=== PATIENT | female | born 1935 | race Caucasian/White ===

== ENCOUNTER 2017-02-28 18:23 | Emergency (ER) | payer MEDICARE, MEDICAID ==
[~2017-02-28] VITALS: Ht 152.4 cm; Wt 60.0 kg
[~2017-02-28 18:23] MED LIST: ASPI-1158 PO; ATOR20TA65 PO; CHOL20004 PO; MECL-109 PO; METO100T5 PO; OMEP20TA2 PO
[2017-02-28 19:43] LABS: BASOPHILS % 0.8 % (0.0-2.0); EOSINOPHILS % 0.9 % (0.0-5.0); HEMATOCRIT. 33.4 % (36.0-48.0); MEAN CORPUSCULAR HEMOGLOBIN 28.2 pg (28.0-32.0); MEAN CORPUSCULAR VOLUME 85.4 fL (81.0-99.0); MEAN PLATELET VOLUME 7.5 fl (7.4-10.4); NEUTROPHILS % 67.3 % (40.0-76.0); PLATELET 364 x1000/uL (130-400); RED BLOOD CELL COUNT 3.91 mill/uL (4.2-5.4); RED CELL DISTRIBUTION WIDTH 14.7 % (11.6-14.6)
[2017-02-28 19:49] LABS: PROTHROMBIN TIME 10.1 sec (9.4-11.6)
[2017-02-28 19:51] LABS: CHLORIDE 108 mEq/L (98-107)
[2017-02-28 20:02] LABS: CARBON DIOXIDE 26 mEq/L (21-32); TROPONIN I < 0.02 ng/mL (0.00-0.04)
[2017-02-28] MEDS ORDERED: ACETAMINOPHEN 650MG/20.3ML UDC PO ONE (22:30)
[2017-02-28 23:43] LABS: CLARITY URINE CLEAR (CLEAR); COLOR URINE YELLOW (YELLOW); GLUCOSE URINE NEGATIVE (NEGATIVE); KETONES URINE NEGATIVE (NEGATIVE); LEUKOCYTE ESTERASE URINE NEGATIVE (NEGATIVE); NITRITE URINE NEGATIVE (NEGATIVE); OCCULT BLOOD URINE 1+ (NEGATIVE); PH URINE 6.5 (4.5-8.0); PROTEIN URINE NEGATIVE (NEGATIVE); SPECIFIC GRAVITY URINE 1.008 (1.005-1.030); UROBILINOGEN URINE 0.2 E.U./dL (0.2-1.0)
[2017-03-01 01:35] VITALS: BP 126/70
== END 2017-03-01 01:40 | disposition home or self-care (01) ==
LOC: ER 18:24 → CANBEDREQ 03-01 05:13
DX: R42 Dizziness and giddiness (principal); R53.1 Weakness; R51 Headache; I10 Essential (primary) hypertension; D72.829 Elevated white blood cell count, unspecified; D64.9 Anemia, unspecified; Z79.82 Long term (current) use of aspirin; Z90.710 Acquired absence of both cervix and uterus; Z90.49 Acquired absence of other specified parts of digestive tract
CPT/HCPCS: 36415; 70450; 71010; 80053; 81001; 83880; 84484; 85025; 85610; 93005; 99285

== ENCOUNTER 2017-04-28 23:37 | Inpatient (IN) | payer MEDICARE, MEDICAID ==
[~2017-04-28] VITALS: Ht 152.4 cm; Wt 53.1 kg
[2017-04-29] MEDS ORDERED: NITROGLYCERIN 0.1MG/HR PATCH TOP NR (02:20)
[2017-04-29] MEDS ORDERED: SODIUM CHLORIDE 0.9% 1,000 ML IV ONE (02:20)
[2017-04-29] MEDS ORDERED: ASPIRIN 81MG TABLET PO NR (02:20)
[2017-04-29 10:10] VITALS: BP 161/80
[2017-04-29 10:47] VITALS: BP 161/80
[2017-04-29] MEDS ORDERED: ONDANSETRON HCL 4MG/2ML VIAL IV PRN (11:15)
[2017-04-29] MEDS ORDERED: GUAIFENESIN 200MG/10ML SUGAR FREE UDC PO PRN (11:15)
[2017-04-29] MEDS ORDERED: ACETAMINOPHEN 325MG TABLET PO PRN (11:15)
[2017-04-29] MEDS ORDERED: CLONIDINE 0.1MG TABLET PO PRN (11:15)
[2017-04-29] MEDS ORDERED: TRAMADOL 50MG TABLET PO PRN (11:15)
[2017-04-29] MEDS ORDERED: IPRATROPIUM/ALBUTEROL 0.5-3(2.5)MG/3ML NEB INH PRN (11:15)
[2017-04-29] MEDS ORDERED: NA PHOS,M-B/NA PHOS,DI-BA ENEMA 118ML PR PRN (11:15)
[2017-04-29] MEDS ORDERED: NITROGLYCERIN 0.4MG TABLET SL SL PRN (11:15)
[2017-04-29] MEDS ORDERED: MAGNESIUM/ALUMINUM HYDROXIDE/SIMETHICONE 30ML UDC PO PRN (11:15)
[2017-04-29] MEDS ORDERED: DIPHENHYDRAMINE 50MG/ML VIAL IV PRN (11:15)
[2017-04-29] MEDS ORDERED: DOCUSATE SODIUM 100MG CAPSULE PO PRN (11:15)
[2017-04-29] MEDS ORDERED: LORAZEPAM 2MG/ML CPJ IV PRN (11:15)
[2017-04-29] MEDS: PANTOPRAZOLE SODIUM 40 MG/VIAL IV SCH (12:09)
[2017-04-29 16:00] VITALS: BP 131/76
[2017-04-29 16:23] LABS: CARBON DIOXIDE 25 mEq/L (21-32); CHLORIDE 114 mEq/L (98-107); CREATINE KINASE 38 IU/L (26-192); CREATINE KINASE MB FRACTION 1.1 ng/mL (0.5-3.6); TROPONIN I < 0.02 ng/mL (0.00-0.04)
[2017-04-29 18:09] LABS: HEMATOCRIT 32.1 % (36.0-48.0); HEMOGLOBIN 10.9 g/dL (12.0-16.0); MEAN CORPUSCULAR HEMOGLOBIN 29.5 pg (28.0-32.0); MEAN CORPUSCULAR VOLUME 87.1 fL (81.0-99.0); PLATELET 278 x1000/uL (130-400); RED BLOOD CELL COUNT 3.69 mill/uL (4.2-5.4); RED CELL DISTRIBUTION WIDTH 15.7 % (11.6-14.6)
[2017-04-29 19:17] LABS: BASOPHILS % 1.5 % (0.0-2.0); EOSINOPHILS % 0.7 % (0.0-5.0); HEMATOCRIT. 35.1 % (36.0-48.0); HEMOGLOBIN. 11.6 g/dL (12.0-16.0); LYMPHOCYTES % 25.6 % (20.0-50.0); MEAN CORPUSCULAR HEMOGLOBIN 29.6 pg (28.0-32.0); MEAN PLATELET VOLUME 8.4 fl (7.4-10.4); MONOCYTES % 4.4 % (2.0-8.0); NEUTROPHILS % 67.8 % (40.0-76.0); PLATELET 301 x1000/uL (130-400); RED BLOOD CELL COUNT 3.94 mill/uL (4.2-5.4); RED CELL DISTRIBUTION WIDTH 16.3 % (11.6-14.6)
[2017-04-29 19:20] LABS: T4 FREE 0.92 ng/dL (0.76-1.46)
[2017-04-29 19:44] LABS: VITAMIN B12 SERUM 178 pg/mL (211-911)
[2017-04-29 20:00] VITALS: BP 130/78
[2017-04-29 20:13] LABS: FOLIC ACID (FOLATE) SERUM > 20.00 ng/mL (>5.38)
[2017-04-29] MEDS: LISINOPRIL 20MG TABLET PO SCH (20:56)
[2017-04-29] MEDS: SUCRALFATE 1 G/10 ML UDC PO SCH (20:56)
[2017-04-29] MEDS: ATORVASTATIN CALCIUM 20MG TABLET PO SCH (20:56)
[2017-04-29] MEDS: ENOXAPARIN 40MG/0.4ML SYR SUBCUT SCH (20:57)
[2017-04-29] MEDS: METOPROLOL TARTRATE 25MG TABLET PO SCH (20:58)
[2017-04-29] MEDS: ASCORBIC ACID 500 MG TABLET PO SCH (20:59)
[2017-04-29] MEDS ORDERED: ZOLPIDEM TARTRATE 5MG TABLET PO PRN (21:00)
[2017-04-30] VITALS (7 sets, daily range): BP systolic 107–140; BP diastolic 56–71
[2017-04-30 00:05] LABS: CREATINE KINASE 45 IU/L (26-192)
[2017-04-30 06:58] LABS: TROPONIN I < 0.02 ng/mL (0.00-0.04)
[2017-04-30] MEDS: METOPROLOL TARTRATE 25MG TABLET PO SCH ×2 (09:00→20:36)
[2017-04-30] MEDS: ASPIRIN 325MG EC TABLET PO SCH (09:22)
[2017-04-30] MEDS: ASCORBIC ACID 500 MG TABLET PO SCH ×2 (09:23→20:36)
[2017-04-30] MEDS: LISINOPRIL 20MG TABLET PO SCH ×2 (09:23→20:36)
[2017-04-30] MEDS: SUCRALFATE 1 G/10 ML UDC PO SCH ×4 (09:24→20:35)
[2017-04-30] MEDS: PANTOPRAZOLE SODIUM 40 MG/VIAL IV SCH (09:25)
[2017-04-30] MEDS: ENOXAPARIN 40MG/0.4ML SYR SUBCUT SCH (20:35)
[2017-04-30] MEDS: ATORVASTATIN CALCIUM 20MG TABLET PO SCH (20:36)
[2017-05-01 04:00] VITALS: BP 122/62
[2017-05-01] MEDS: SUCRALFATE 1 G/10 ML UDC PO SCH ×4 (07:10→22:03)
[2017-05-01 07:25] LABS: BASOPHILS % 0.7 % (0.0-2.0); EOSINOPHILS % 1.2 % (0.0-5.0); HEMATOCRIT. 30.8 % (36.0-48.0); HEMOGLOBIN. 10.1 g/dL (12.0-16.0); LYMPHOCYTES % 29.7 % (20.0-50.0); MEAN CORPUSCULAR HEMOGLOBIN 28.7 pg (28.0-32.0); MEAN CORPUSCULAR VOLUME 87.3 fL (81.0-99.0); MEAN PLATELET VOLUME 8.2 fl (7.4-10.4); MONOCYTES % 6.4 % (2.0-8.0); PLATELET 274 x1000/uL (130-400); RED BLOOD CELL COUNT 3.53 mill/uL (4.2-5.4); RED CELL DISTRIBUTION WIDTH 15.8 % (11.6-14.6)
[2017-05-01 07:35] LABS: CARBON DIOXIDE 23 mEq/L (21-32); CHLORIDE 112 mEq/L (98-107); TROPONIN I < 0.02 ng/mL (0.00-0.04)
[2017-05-01 08:00] VITALS: BP 110/52
[2017-05-01] MEDS: ASCORBIC ACID 500 MG TABLET PO SCH ×2 (08:18→22:05)
[2017-05-01] MEDS: FAMOTIDINE 20MG TABLET PO SCH (08:18)
[2017-05-01] MEDS: LISINOPRIL 20MG TABLET PO SCH ×2 (08:18→22:05)
[2017-05-01] MEDS: METOPROLOL TARTRATE 25MG TABLET PO SCH ×2 (08:18→22:05)
[2017-05-01] MEDS: ASPIRIN 325MG EC TABLET PO SCH (08:18)
[2017-05-01 12:00] VITALS: BP 116/54
[2017-05-01 16:00] VITALS: BP 103/56
[2017-05-01 20:00] VITALS: BP_SYST 132; BP_SYST 145; BP_SYST 147; BP_DIAS 61; BP_DIAS 68; BP_DIAS 69
[2017-05-01] MEDS ORDERED: ENOXAPARIN 30MG/0.3ML SYR SUBCUT SCH (21:00)
[2017-05-01] MEDS: ATORVASTATIN CALCIUM 20MG TABLET PO SCH (22:04)
[2017-05-02] VITALS: BP 102/58
[2017-05-02 04:00] VITALS: BP 105/54
[2017-05-02 08:00] VITALS: BP_SYST 155; BP_SYST 159; BP_SYST 160; BP_DIAS 68; BP_DIAS 70; BP_DIAS 78
[2017-05-02] MEDS: ASCORBIC ACID 500 MG TABLET PO SCH (08:34)
[2017-05-02] MEDS: FAMOTIDINE 20MG TABLET PO SCH (08:34)
[2017-05-02] MEDS: SUCRALFATE 1 G/10 ML UDC PO SCH (08:34)
[2017-05-02] MEDS: ASPIRIN 325MG EC TABLET PO SCH (08:35)
[2017-05-02] MEDS: METOPROLOL TARTRATE 25MG TABLET PO SCH (08:44)
[2017-05-02] MEDS: LISINOPRIL 20MG TABLET PO SCH (08:44)
[2017-05-02 12:00] VITALS: BP 135/70
[2017-05-02 13:35] VITALS: BP 135/70
== END 2017-05-02 15:53 | disposition home or self-care (01) | DRG 392 ==
LOC: ER 04-29 01:00 → 7WST 04-29 04:00
PROVIDERS: ADMIT Internal Medicine; ATTEND Internal Medicine
DX: K21.9 Gastro-esophageal reflux disease without esophagitis (principal); E44.0 Moderate protein-calorie malnutrition; D63.8 Anemia in other chronic diseases classified elsewhere; E78.00 Pure hypercholesterolemia, unspecified; H81.10 Benign paroxysmal vertigo, unspecified ear; R29.6 Repeated falls; I11.9 Hypertensive heart disease without heart failure; Z79.899 Other long term (current) drug therapy; Z79.82 Long term (current) use of aspirin; Z90.710 Acquired absence of both cervix and uterus; Z90.49 Acquired absence of other specified parts of digestive tract; Z68.22 Body mass index [BMI] 22.0-22.9, adult
CPT/HCPCS: 36415; 71010; 80048; 80053; 80061; 82550; 82553; 82607; 82746; 83036; 83540; 83550; 83735; 83880; 84439; 84443; 84484; 85025; 85027; 85379; 93005; 93306; 93970; 97161; 97165; 99285; C9113; J1650; J7030

== ENCOUNTER → 2017-12-14 | Outpatient (CLI) | payer MEDICARE, MEDICAID ==
[~2017-12-14] MED LIST changes: +METO100T16 PO; -METO100T5 PO
[2017-12-14 17:49] LABS: BASOPHILS % 0.4 % (0.0-2.0); EOSINOPHILS % 0.3 % (0.0-5.0); HEMATOCRIT. 37.1 % (36.0-48.0); HEMOGLOBIN. 12.3 g/dL (12.0-16.0); LYMPHOCYTES % 37.1 % (20.0-50.0); MEAN CORPUSCULAR HEMOGLOBIN 30.1 pg (28.0-32.0); MEAN CORPUSCULAR VOLUME 90.4 fL (81.0-99.0); MEAN PLATELET VOLUME 8.6 fl (7.4-10.4); MONOCYTES % 5.3 % (2.0-8.0); NEUTROPHILS % 56.9 % (40.0-76.0); PLATELET 275 x1000/uL (130-400); RED CELL DISTRIBUTION WIDTH 19.1 % (11.6-14.6)
[2017-12-14 17:54] LABS: CHLORIDE 109 mEq/L (98-107)
[2017-12-14 17:57] LABS: INR 1.2
[2017-12-14 17:59] LABS: AMYLASE 37 IU/L (25-115); GAMMA GLUTAMYL TRANSPEPTIDASE 23 IU/L (7-32)
[2017-12-14 18:05] LABS: T4 FREE 1.24 ng/dL (0.76-1.46)
== END | disposition home or self-care (01) ==
LOC: LAB 16:43
PROVIDERS: ATTEND Internal Medicine Gastroenterology
DX: D64.9 Anemia, unspecified (principal); R11.2 Nausea with vomiting, unspecified; R63.4 Abnormal weight loss; R47.02 Dysphasia; E78.5 Hyperlipidemia, unspecified; E78.00 Pure hypercholesterolemia, unspecified; I11.9 Hypertensive heart disease without heart failure; Z79.82 Long term (current) use of aspirin; Z79.899 Other long term (current) drug therapy; Z90.49 Acquired absence of other specified parts of digestive tract; Z90.710 Acquired absence of both cervix and uterus; Z79.01 Long term (current) use of anticoagulants
CPT/HCPCS: 36415; 80053; 82150; 82784; 82977; 83036; 83516; 83615; 83690; 84439; 84443; 85025; 85610; 86255

== ENCOUNTER → 2017-12-23 | Outpatient (CLI) | payer MEDICARE, MEDICAID | END | disposition home or self-care (01) | LOC: MRI 10:46 | PROVIDERS: ATTEND Internal Medicine Gastroenterology | DX: N28.1 Cyst of kidney, acquired (principal); Z90.49 Acquired absence of other specified parts of digestive tract | CPT/HCPCS: 74181 ==

== ENCOUNTER → 2018-01-24 | Outpatient (CLI) | payer MEDICARE, MEDICAID ==
[~2018-01-24] MED LIST changes: +BARIUM SULFATE 450ML ORAL SUSP ONE
== END | disposition home or self-care (01) ==
LOC: CT 09:21
PROVIDERS: ATTEND Internal Medicine Gastroenterology
DX: K21.9 Gastro-esophageal reflux disease without esophagitis (principal); K57.90 Diverticulosis of intestine, part unspecified, without perforation or abscess without bleeding; R63.4 Abnormal weight loss; K29.70 Gastritis, unspecified, without bleeding; Z90.49 Acquired absence of other specified parts of digestive tract
CPT/HCPCS: 71046; 74176

== ENCOUNTER → 2018-02-22 | Outpatient (CLI) | payer MEDICARE, MEDICAID ==
[~2018-02-22] MED LIST changes: -BARIUM SULFATE 450ML ORAL SUSP ONE; +MEGE625O3 PO; +MIRT15TA PO; +RANI300C8 PO
[2018-02-22 13:08] LABS: INR 1.2
[2018-02-22 13:17] LABS: BASOPHILS % 0.1 % (0.0-2.0); HEMATOCRIT. 27.8 % (36.0-48.0); HEMOGLOBIN. 9.4 g/dL (12.0-16.0); LYMPHOCYTES % 10.1 % (20.0-50.0); MEAN CORPUSCULAR HEMOGLOBIN 35.5 pg (28.0-32.0); MEAN CORPUSCULAR VOLUME 105.4 fL (81.0-99.0); MEAN PLATELET VOLUME 8.6 fl (7.4-10.4); MONOCYTES % 3.6 % (2.0-8.0); NEUTROPHILS % 86.2 % (40.0-76.0); PLATELET 232 x1000/uL (130-400); RED BLOOD CELL COUNT 2.64 mill/uL (4.2-5.4); RED CELL DISTRIBUTION WIDTH 20.3 % (11.6-14.6)
== END | disposition home or self-care (01) ==
LOC: LAB 11:24
PROVIDERS: ATTEND Internal Medicine Gastroenterology
DX: R63.4 Abnormal weight loss (principal); R19.7 Diarrhea, unspecified; Z86.2 Personal history of diseases of the blood and blood-forming organs and certain disorders involving the immune mechanism; I10 Essential (primary) hypertension; R79.1 Abnormal coagulation profile
CPT/HCPCS: 36415; 80048; 85025; 85610

== ENCOUNTER → 2018-07-17 | Outpatient (CLI) | payer MEDICARE, MEDICAID ==
[~2018-07-17] MED LIST changes: -ASPI-1158 PO; -ATOR20TA65 PO; -CHOL20004 PO; -MECL-109 PO; -METO100T16 PO; -OMEP20TA2 PO
[2018-07-17 11:11] LABS: BASOPHILS % 0.5 % (0.0-2.0); HEMATOCRIT. 33.1 % (36.0-48.0); HEMOGLOBIN. 10.7 g/dL (12.0-16.0); LYMPHOCYTES % 24.4 % (20.0-50.0); MEAN CORPUSCULAR HEMOGLOBIN 29.1 pg (28.0-32.0); MEAN CORPUSCULAR VOLUME 89.4 fL (81.0-99.0); MEAN PLATELET VOLUME 7.7 fl (7.4-10.4); MONOCYTES % 7.7 % (2.0-8.0); NEUTROPHILS % 66.4 % (40.0-76.0); PLATELET 345 x1000/uL (130-400); RED CELL DISTRIBUTION WIDTH 14.5 % (11.6-14.6)
[2018-07-17 11:36] LABS: CHLORIDE 108 mEq/L (98-107)
[2018-07-17 11:42] LABS: TOTAL IRON BINDING CAPACITY 266 ug/dL (250-450)
[2018-07-17 11:45] LABS: T4 FREE 0.82 ng/dL (0.76-1.46)
[2018-07-17 11:53] LABS: FERRITIN 125 ng/mL (10-291)
[2018-07-17 16:01] LABS: FOLIC ACID (FOLATE) SERUM >20 ng/mL ng/mL (>5.38)
[2018-07-17 16:13] LABS: VITAMIN B12 SERUM 528 pg/mL (211-911)
[2018-07-19 13:06] LABS: HGB A 97.7 % (96.4-98.8); HGB A2 2.3 % (1.8-3.2); HGB SOLUBILITY Negative (Negative)
== END | disposition home or self-care (01) ==
LOC: LAB 10:35
PROVIDERS: ATTEND Internal Medicine Gastroenterology
DX: K57.12 Diverticulitis of small intestine without perforation or abscess without bleeding (principal); D50.9 Iron deficiency anemia, unspecified; I10 Essential (primary) hypertension; R63.4 Abnormal weight loss; Z79.899 Other long term (current) drug therapy
CPT/HCPCS: 36415; 82607; 82728; 82746; 83021; 83036; 83540; 83550; 84134; 84439; 84443; 85044; 85660

== ENCOUNTER → 2018-10-23 | Outpatient (CLI) | payer MEDICARE, MEDICAID ==
[2018-10-23 11:33] LABS: CHLORIDE 110 mEq/L (98-107)
[2018-10-23 11:39] LABS: LDL CHOLESTEROL 56 mg/dL (5-100)
[2018-10-23 11:41] LABS: HDL CHOLESTEROL 35 mg/dL (40-59)
[2018-10-23 11:44] LABS: T4 FREE 0.86 ng/dL (0.76-1.46)
[2018-10-23 11:45] LABS: TOTAL IRON BINDING CAPACITY 248 ug/dL (250-450)
[2018-10-23 11:52] LABS: BASOPHILS % 0.6 % (0.0-2.0); EOSINOPHILS % 0.6 % (0.0-5.0); HEMATOCRIT. 34.2 % (36.0-48.0); HEMOGLOBIN. 11.4 g/dL (12.0-16.0); MEAN CORPUSCULAR HEMOGLOBIN 28.6 pg (28.0-32.0); MEAN CORPUSCULAR VOLUME 86.1 fL (81.0-99.0); MEAN PLATELET VOLUME 7.9 fl (7.4-10.4); NEUTROPHILS % 68.8 % (40.0-76.0); PLATELET 295 x1000/uL (130-400); RED BLOOD CELL COUNT 3.98 mill/uL (4.2-5.4); RED CELL DISTRIBUTION WIDTH 14.9 % (11.6-14.6)
[2018-10-23 12:14] LABS: FERRITIN 104 ng/mL (10-291)
[2018-10-23 12:15] LABS: VITAMIN B12 SERUM 774 pg/mL (211-911)
[2018-10-23 12:21] LABS: FOLIC ACID (FOLATE) SERUM > 20.00 ng/mL (>5.38)
== END | disposition home or self-care (01) ==
LOC: LAB 11:00
PROVIDERS: ATTEND Internal Medicine Gastroenterology
DX: K21.9 Gastro-esophageal reflux disease without esophagitis (principal); I10 Essential (primary) hypertension; Z79.899 Other long term (current) drug therapy; Z86.2 Personal history of diseases of the blood and blood-forming organs and certain disorders involving the immune mechanism
CPT/HCPCS: 36415; 80061; 82607; 82728; 82746; 83036; 83540; 83550; 84439; 84443

== ENCOUNTER → 2018-11-21 | Outpatient (CLI) | payer MEDICARE, MEDICAID | END | disposition home or self-care (01) | LOC: LAB 11:30 | PROVIDERS: ATTEND Internal Medicine Gastroenterology | DX: R63.4 Abnormal weight loss (principal) | CPT/HCPCS: 36415; 80048 ==

== ENCOUNTER → 2019-01-26 | Outpatient (CLI) | payer MEDICARE, MEDICAID ==
[2019-01-26 12:30] LABS: BASOPHILS % 0.4 % (0.0-2.0); EOSINOPHILS % 1.1 % (0.0-5.0); HEMATOCRIT. 31.4 % (36.0-48.0); HEMOGLOBIN. 10.4 g/dL (12.0-16.0); LYMPHOCYTES % 26.9 % (20.0-50.0); MEAN CORPUSCULAR HEMOGLOBIN 29.1 pg (28.0-32.0); MEAN CORPUSCULAR VOLUME 87.6 fL (81.0-99.0); MEAN PLATELET VOLUME 7.5 fl (7.4-10.4); MONOCYTES % 7.1 % (2.0-8.0); NEUTROPHILS % 64.5 % (40.0-76.0); PLATELET 352 x1000/uL (130-400); RED BLOOD CELL COUNT 3.58 mill/uL (4.2-5.4); RED CELL DISTRIBUTION WIDTH 14.9 % (11.6-14.6)
[2019-01-26 12:35] LABS: CHLORIDE 105 mEq/L (98-107)
[2019-01-26 12:43] LABS: PHOSPHORUS 3.6 mg/dL (2.5-4.9)
== END | disposition home or self-care (01) ==
LOC: LAB 11:09
PROVIDERS: ATTEND Internal Medicine Gastroenterology
DX: R63.4 Abnormal weight loss (principal); I10 Essential (primary) hypertension; Z79.899 Other long term (current) drug therapy
CPT/HCPCS: 36415; 82306; 83735; 84100; 84134

== ENCOUNTER 2020-02-19 21:33 | Emergency (ER) | payer MEDICARE, MEDICAID ==
[~2020-02-19] VITALS: Ht 149.9 cm; Wt 42.7 kg
[~2020-02-19 21:33] MED LIST changes: +APIX2.5T PO; +CLON0.1T PO; +DRON400T PO; +FAMO-135 PO; -MEGE625O3 PO; -RANI300C8 PO
[2020-02-19 21:35] VITALS: BP 135/87
[2020-02-19] MEDS ORDERED: ACETAMINOPHEN 325MG TABLET PO STA (23:46)
[2020-02-19] MEDS ORDERED: ONDANSETRON 4MG ODT PO STA (23:46)
[2020-02-20 00:27] LABS: BASOPHILS % 0.3 % (0.0-2.0); EOSINOPHILS % 0.3 % (0.0-5.0); HEMATOCRIT. 29.7 % (36.0-48.0); LYMPHOCYTES % 21.3 % (20.0-50.0); MEAN CORPUSCULAR VOLUME 86.1 fL (81.0-99.0); MEAN PLATELET VOLUME 7.7 fl (7.4-10.4); MONOCYTES % 5.7 % (2.0-8.0); NEUTROPHILS % 72.4 % (40.0-76.0); PLATELET 399 x1000/uL (130-400); RED BLOOD CELL COUNT 3.45 mill/uL (4.2-5.4); RED CELL DISTRIBUTION WIDTH 14.2 % (11.6-14.6)
[2020-02-20 00:37] LABS: CHLORIDE 107 mEq/L (98-107)
[2020-02-20 01:31] LABS: INR 1.1; PROTHROMBIN TIME 11.4 sec (9.6-11.0)
== END 2020-02-20 01:15 | disposition left against medical advice (07) ==
LOC: ER 21:33
DX: R19.7 Diarrhea, unspecified (principal); I10 Essential (primary) hypertension; I48.91 Unspecified atrial fibrillation; Z79.01 Long term (current) use of anticoagulants; Z95.0 Presence of cardiac pacemaker
CPT/HCPCS: 36415; 80053; 83690; 85025; 85610; 99283; Q0162

== ENCOUNTER 2020-02-23 10:38 | Inpatient (IN) | payer MEDICARE, MEDICAID ==
[~2020-02-23] VITALS: Ht 152.4 cm; Wt 40.8 kg
[2020-02-23] MEDS ORDERED: SODIUM CHLORIDE 0.9% 1,000 ML IV ONE (10:57)
[2020-02-23] MEDS ORDERED: ONDANSETRON HCL 4MG/2ML INJ IV ONE (11:15)
[2020-02-23 11:50] LABS: BASOPHILS % 0.4 % (0.0-2.0); EOSINOPHILS % 0.2 % (0.0-5.0); HEMATOCRIT. 30.7 % (36.0-48.0); HEMOGLOBIN. 10.2 g/dL (12.0-16.0); LYMPHOCYTES % 22.4 % (20.0-50.0); MEAN CORPUSCULAR HEMOGLOBIN 28.3 pg (28.0-32.0); MEAN CORPUSCULAR VOLUME 85.6 fL (81.0-99.0); MEAN PLATELET VOLUME 7.7 fl (7.4-10.4); PLATELET 440 x1000/uL (130-400); RED BLOOD CELL COUNT 3.59 mill/uL (4.2-5.4); RED CELL DISTRIBUTION WIDTH 14.5 % (11.6-14.6)
[2020-02-23 12:02] LABS: CHLORIDE 109 mEq/L (98-107)
[2020-02-23 12:10] LABS: CREATINE KINASE 37 IU/L (26-192)
[2020-02-23] MEDS ORDERED: MORPHINE SULFATE 2 MG/ML CPJ (NOT FOR IM USE) IV ONE (13:45)
[2020-02-23] MEDS ORDERED: KETOROLAC 15MG/ML VIAL IV PRN (20:15)
[2020-02-23] MEDS ORDERED: ONDANSETRON HCL 4MG/2ML INJ IV PRN (20:15)
[2020-02-23] MEDS ORDERED: DIPHENHYDRAMINE 50MG/ML VIAL IV PRN (20:15)
[2020-02-23] MEDS ORDERED: ACETAMINOPHEN 325MG TABLET PO PRN ×2 (20:15)
[2020-02-23] MEDS ORDERED: ZOLPIDEM TARTRATE 5MG TABLET PO PRN (20:15)
[2020-02-23] MEDS ORDERED: CLONIDINE 0.1MG TABLET PO PRN (20:15)
[2020-02-23] MEDS: OMEPRAZOLE 20MG CAPSULE EXTENDED RELEASE PO SCH (21:09)
[2020-02-23 22:00] VITALS: BP 104/50
[2020-02-24 00:49] VITALS: BP 121/80
[2020-02-24 04:00] VITALS: BP 113/63
[2020-02-24] MEDS: OMEPRAZOLE 20MG CAPSULE EXTENDED RELEASE PO SCH ×2 (06:22→20:34)
[2020-02-24 08:48] VITALS: BP 116/57
[2020-02-24 12:00] VITALS: BP 116/57
[2020-02-24 16:18] VITALS: BP 120/82
[2020-02-24 20:44] VITALS: BP 121/82
[2020-02-25 00:41] VITALS: BP 104/62
[2020-02-25 04:00] VITALS: BP 103/60
[2020-02-25] MEDS: OMEPRAZOLE 20MG CAPSULE EXTENDED RELEASE PO SCH (07:34)
[2020-02-25 08:00] VITALS: BP 97/84
[2020-02-25 12:00] VITALS: BP 112/57
[2020-02-25 13:50] VITALS: BP 112/57
== END 2020-02-25 15:45 | disposition home or self-care (01) | DRG 391 ==
LOC: ER 10:52 → EDBEDREQTM 13:48 → EDBEDREQ 13:48 → EDBEDREQSVC 13:48 → 6WST 14:56 → EDBEDREQ 15:24 → EDBEDREQTM 15:24 → ENRESERV 19:48
PROVIDERS: ADMIT Internal Medicine; ATTEND Internal Medicine
DX: K21.9 Gastro-esophageal reflux disease without esophagitis (principal); E43 Unspecified severe protein-calorie malnutrition; I10 Essential (primary) hypertension; Z95.0 Presence of cardiac pacemaker; Z90.49 Acquired absence of other specified parts of digestive tract; Z90.710 Acquired absence of both cervix and uterus; Z93.1 Gastrostomy status
CPT/HCPCS: 36415; 71045; 74176; 80053; 82550; 83605; 83880; 84145; 84484; 85025; 86850; 86900; 93005; 96374; 99283; 99285; J2405; J7030; Q0162

== ENCOUNTER 2020-04-10 15:39 | Inpatient (IN) | payer MEDICARE, MEDICAID ==
[~2020-04-10] VITALS: Ht 160 cm; Wt 39.0 kg
[2020-04-10] MEDS ORDERED: MAGNESIUM/ALUMINUM HYDROXIDE/SIMETHICONE 30ML UDC PO STA (17:21)
[2020-04-10] MEDS ORDERED: ONDANSETRON 4MG ODT PO STA (17:21)
[2020-04-10 17:38] LABS: BASOPHILS % 0.5 % (0.0-2.0); EOSINOPHILS % 0.1 % (0.0-5.0); HEMATOCRIT. 32.1 % (36.0-48.0); HEMOGLOBIN. 10.6 g/dL (12.0-16.0); LYMPHOCYTES % 23.4 % (20.0-50.0); MEAN CORPUSCULAR VOLUME 90.8 fL (81.0-99.0); MEAN PLATELET VOLUME 7.8 fl (7.4-10.4); MONOCYTES % 6.7 % (2.0-8.0); NEUTROPHILS % 69.3 % (40.0-76.0); PLATELET 459 x1000/uL (130-400); RED BLOOD CELL COUNT 3.53 mill/uL (4.2-5.4); RED CELL DISTRIBUTION WIDTH 22.3 % (11.6-14.6)
[2020-04-10 17:46] LABS: CHLORIDE 117 mEq/L (98-107)
[2020-04-10 18:06] LABS: PLATELET ESTIMATE INCREASED
[2020-04-10] MEDS ORDERED: SODIUM CHLORIDE 0.9% 1,000 ML IV ONE (18:15)
[2020-04-10 18:23] LABS: CLARITY URINE CLOUDY (CLEAR); COLOR URINE DARK YELLOW (YELLOW); KETONES URINE NEGATIVE (NEGATIVE); LEUKOCYTE ESTERASE URINE 2+ (NEGATIVE); NITRITE URINE NEGATIVE (NEGATIVE); OCCULT BLOOD URINE NEGATIVE (NEGATIVE); PROTEIN URINE TRACE (NEGATIVE); SPECIFIC GRAVITY URINE 1.021 (1.005-1.030)
[2020-04-10] MEDS ORDERED: CEFTRIAXONE 1 G PREMIX 50 ML IV ONE (19:15)
[2020-04-11] VITALS (7 sets, daily range): BP systolic 91–107; BP diastolic 40–63
[2020-04-11] MEDS ORDERED: CLONIDINE 0.1MG TABLET PO PRN
[2020-04-11] MEDS ORDERED: HYDROCODONE/ACETAMINOPHEN 5/325MG TABLET PO PRN
[2020-04-11] MEDS ORDERED: DOCUSATE SODIUM 100MG CAPSULE PO PRN
[2020-04-11] MEDS ORDERED: MAGNESIUM/ALUMINUM HYDROXIDE/SIMETHICONE 30ML UDC PO PRN
[2020-04-11] MEDS ORDERED: CEFTRIAXONE 1 G PREMIX 50 ML IV SCH
[2020-04-11] MEDS ORDERED: ACETAMINOPHEN 325MG TABLET PO PRN
[2020-04-11] MEDS ORDERED: IPRATROPIUM/ALBUTEROL 0.5-3(2.5)MG/3ML NEB NEB PRN
[2020-04-11] MEDS ORDERED: ONDANSETRON HCL 4MG/2ML INJ IV PRN
[2020-04-11] MEDS: SODIUM CHLORIDE 0.9% 1,000 ML IV SCH ×2 (01:24→16:24)
[2020-04-11 09:28] LABS: HEMATOCRIT. 31.1 % (36.0-48.0); HEMOGLOBIN. 10.3 g/dL (12.0-16.0); MEAN CORPUSCULAR HEMOGLOBIN 30.1 pg (28.0-32.0); MEAN CORPUSCULAR VOLUME 90.9 fL (81.0-99.0); RED BLOOD CELL COUNT 3.42 mill/uL (4.2-5.4); RED CELL DISTRIBUTION WIDTH 22.7 % (11.6-14.6)
[2020-04-11 09:44] LABS: CREATINE KINASE MB FRACTION 3.4 ng/mL (0.5-3.6)
[2020-04-11] MEDS: SODIUM BICARBONATE 650 MG TABLET PO SCH ×3 (10:17→16:25)
[2020-04-11 10:47] LABS: BG BASE EXCESS -10.5 mmol/L (-2.0-2.0); BG CARBOXYHEMOGLOBIN 0.1 % (0.5-1.5); BG DEOXYHEMOGLOBIN 2.4 % (0.0-5.0); BG FRACTION INSPIRED OXYGEN 21; BG HCO3 ACT 12.9 mmol/L (22.0-26.0); BG METHEMOGLOBIN 0.3 % (0.0-1.5); BG OXYGEN SATURATION 97.6 % (92.0-98.5); BG OXYHEMOGLOBIN 97.2 % (94.0-97.0); BG PCO2 21.5 mmHg (35.0-45.0); BG PH 7.395 (7.350-7.450); BG PO2 123.1 mmHg (75.0-100.0); BG SAMPLE SITE RIGHT RADIAL; BG TOTAL HEMOGLOBIN 9.1 g/dL (12.0-18.0); BG VENT MODE ROOM AIR
[2020-04-11 11:43] LABS: PLATELET ESTIMATE NORMAL
[2020-04-11 11:44] LABS: MEAN PLATELET VOLUME 8.8 fl (7.4-10.4); PLATELET 400 x1000/uL (130-400)
[2020-04-11] MEDS ORDERED: NON FORMULARY PATIENT HOME MED XX SCH (15:00)
[2020-04-11] MEDS ORDERED: OMEP40CA12 MT (16:10)
[2020-04-11] MEDS ORDERED: MEGE400O5 MT (16:10)
[2020-04-11] MEDS ORDERED: MECL-183 PO (16:10)
[2020-04-11] MEDS ORDERED: MIRT15TA MT (16:10)
[2020-04-11] MEDS ORDERED: METO-396 MT (16:10)
[2020-04-11] MEDS: APIXABAN 2.5 MG TABLET PO SCH (16:25)
[2020-04-11 16:40] LABS: CREATINE KINASE 32 IU/L (26-192)
[2020-04-11 16:41] LABS: CREATINE KINASE MB FRACTION 3.3 ng/mL (0.5-3.6)
[2020-04-11] MEDS: METRONIDAZOLE 500 MG PREMIX 100 ML IV SCH (17:53)
[2020-04-11] MEDS: MECLIZINE 12.5MG TABLET PO SCH (18:00)
[2020-04-11] MEDS: PANTOPRAZOLE SODIUM 40 MG/VIAL IV SCH (18:42)
[2020-04-11] MEDS: CEFTRIAXONE 1,000 MG in DEXTROSE 5% WATER 50 ML IV SCH (21:28)
[2020-04-12] VITALS: BP 105/67
[2020-04-12 04:00] VITALS: BP 108/64
[2020-04-12] MEDS: METRONIDAZOLE 500 MG PREMIX 100 ML IV SCH ×2 (05:51→17:16)
[2020-04-12 08:00] VITALS: BP 92/43
[2020-04-12] MEDS: METOPROLOL TARTRATE 25MG TABLET PO SCH ×2 (09:00→21:28)
[2020-04-12] MEDS: PANTOPRAZOLE SODIUM 40 MG/VIAL IV SCH (09:00)
[2020-04-12] MEDS: SODIUM BICARBONATE 650 MG TABLET PO SCH ×3 (09:12→17:16)
[2020-04-12] MEDS: APIXABAN 2.5 MG TABLET PO SCH ×2 (09:12→17:17)
[2020-04-12] MEDS: MECLIZINE 12.5MG TABLET PO SCH ×3 (09:13→17:16)
[2020-04-12 12:00] VITALS: BP 98/49
[2020-04-12 12:48] LABS: BASOPHILS % 0.3 % (0.0-2.0); EOSINOPHILS % 0.5 % (0.0-5.0); HEMATOCRIT. 25.6 % (36.0-48.0); HEMOGLOBIN. 8.4 g/dL (12.0-16.0); LYMPHOCYTES % 26.7 % (20.0-50.0); MEAN CORPUSCULAR HEMOGLOBIN 30.4 pg (28.0-32.0); MEAN PLATELET VOLUME 8.1 fl (7.4-10.4); NEUTROPHILS % 66.5 % (40.0-76.0); PLATELET 364 x1000/uL (130-400); RED BLOOD CELL COUNT 2.75 mill/uL (4.2-5.4); RED CELL DISTRIBUTION WIDTH 22.7 % (11.6-14.6)
[2020-04-12 13:07] LABS: FERRITIN 142 ng/mL (10-291)
[2020-04-12 14:14] LABS: VITAMIN B12 SERUM 1216 pg/mL (211-911)
[2020-04-12 14:27] LABS: FOLIC ACID (FOLATE) SERUM > 20.00 ng/mL (>5.38)
[2020-04-12 16:00] VITALS: BP 124/58
[2020-04-12] MEDS: SODIUM CHLORIDE 0.9% 1,000 ML IV SCH (17:17)
[2020-04-12 20:00] VITALS: BP 120/62
[2020-04-12] MEDS: CEFTRIAXONE 1,000 MG in DEXTROSE 5% WATER 50 ML IV SCH (21:28)
[2020-04-13] VITALS: BP 106/60
[2020-04-13 04:00] VITALS: BP 112/59
[2020-04-13] MEDS: METRONIDAZOLE 500 MG PREMIX 100 ML IV SCH ×2 (06:00→18:16)
[2020-04-13] MEDS: DEXT 5%/0.45% NACL 1000ML 1,000 ML IV SCH ×2 (06:15→09:51)
[2020-04-13 06:54] LABS: BASOPHILS % 0.2 % (0.0-2.0); EOSINOPHILS % 0.2 % (0.0-5.0); HEMATOCRIT. 26.2 % (36.0-48.0); HEMOGLOBIN. 8.6 g/dL (12.0-16.0); LYMPHOCYTES % 18.7 % (20.0-50.0); MEAN CORPUSCULAR HEMOGLOBIN 30.2 pg (28.0-32.0); MEAN CORPUSCULAR VOLUME 91.3 fL (81.0-99.0); MEAN PLATELET VOLUME 8.2 fl (7.4-10.4); MONOCYTES % 6.4 % (2.0-8.0); NEUTROPHILS % 74.5 % (40.0-76.0); PLATELET 414 x1000/uL (130-400); RED BLOOD CELL COUNT 2.87 mill/uL (4.2-5.4); RED CELL DISTRIBUTION WIDTH 22.3 % (11.6-14.6)
[2020-04-13 08:00] VITALS: BP 93/51
[2020-04-13] MEDS: SODIUM BICARBONATE 650 MG TABLET PO SCH ×3 (09:00→18:15)
[2020-04-13] MEDS: METOPROLOL TARTRATE 25MG TABLET PO SCH ×2 (09:00→21:37)
[2020-04-13] MEDS: MECLIZINE 12.5MG TABLET PO SCH ×3 (09:00→18:15)
[2020-04-13] MEDS: PANTOPRAZOLE SODIUM 40 MG/VIAL IV SCH (09:43)
[2020-04-13 12:00] VITALS: BP 106/55
[2020-04-13 14:23] LABS: PROTHROMBIN TIME 10.8 sec (9.6-11.0)
[2020-04-13] MEDS ORDERED: MIDAZOLAM HCL 5 MG/5 ML VIAL ONE (15:15)
[2020-04-13] MEDS ORDERED: FENTANYL CITRATE/PF 50MCG/ML 2ML VIAL ONE (15:15)
[2020-04-13] MEDS ORDERED: MIDAZOLAM HCL 2 MG/2 ML VIAL IV PRN (15:20)
[2020-04-13 16:00] VITALS: BP 104/61
[2020-04-13 20:00] VITALS: BP 121/82
[2020-04-13] MEDS: CEFTRIAXONE 1,000 MG in DEXTROSE 5% WATER 50 ML IV SCH (21:37)
[2020-04-14] VITALS: BP 120/78
[2020-04-14] MEDS: DEXT 5%/0.45% NACL 1000ML 1,000 ML IV SCH ×2 (02:02→21:42)
[2020-04-14 04:00] VITALS: BP 121/48
[2020-04-14] MEDS: METRONIDAZOLE 500 MG PREMIX 100 ML IV SCH (05:36)
[2020-04-14 08:00] VITALS: BP 107/58
[2020-04-14] MEDS: METOPROLOL TARTRATE 25MG TABLET PO SCH ×2 (08:08→21:00)
[2020-04-14] MEDS: MECLIZINE 12.5MG TABLET PO SCH ×3 (08:25→17:19)
[2020-04-14] MEDS: SODIUM BICARBONATE 650 MG TABLET PO SCH ×3 (08:25→17:19)
[2020-04-14] MEDS: PANTOPRAZOLE SODIUM 40 MG/VIAL IV SCH (08:25)
[2020-04-14 12:00] VITALS: BP 93/53
[2020-04-14] MEDS: METRONIDAZOLE 500MG TABLET PO SCH ×2 (13:48→21:37)
[2020-04-14 16:00] VITALS: BP 98/45
[2020-04-14 20:00] VITALS: BP 101/59
[2020-04-14] MEDS: CEFTRIAXONE 1,000 MG in DEXTROSE 5% WATER 50 ML IV SCH (21:37)
[2020-04-15 04:00] VITALS: BP 113/66
[2020-04-15] MEDS: METRONIDAZOLE 500MG TABLET PO SCH (05:54)
[2020-04-15 08:00] VITALS: BP 113/73
[2020-04-15] MEDS ORDERED: FAMOTIDINE 20MG/2ML VIAL IV SCH (09:00)
[2020-04-15] MEDS: MECLIZINE 12.5MG TABLET PO SCH (09:25)
[2020-04-15] MEDS: SODIUM BICARBONATE 650 MG TABLET PO SCH (09:25)
[2020-04-15] MEDS: METOPROLOL TARTRATE 25MG TABLET PO SCH (09:26)
[2020-04-15 10:03] VITALS: BP 113/73
[2020-04-15 12:00] VITALS: BP 90/72
== END 2020-04-15 13:24 | disposition home or self-care (01) | DRG 391 ==
LOC: ER 15:39 → 6EST 21:09 → ENRESERV 21:40 → CANRESERV 21:40 → ENRESERV 21:45
PROVIDERS: ADMIT Internal Medicine; ATTEND Internal Medicine
PROC: 0DB68ZX Excision of Stomach, Via Natural or Artificial Opening Endoscopic, Diagnostic (ICD-10-PCS; principal; 2020-04-13)
PROC: 05HY33Z Insertion of Infusion Device into Upper Vein, Percutaneous Approach (ICD-10-PCS; 2020-04-14)
PROC: B54MZZA Ultrasonography of Right Upper Extremity Veins, Guidance (ICD-10-PCS; 2020-04-14)
DX: K52.9 Noninfective gastroenteritis and colitis, unspecified (principal); N18.6 End stage renal disease; N17.9 Acute kidney failure, unspecified; N13.0 Hydronephrosis with ureteropelvic junction obstruction; E46 Unspecified protein-calorie malnutrition; E87.2 Acidosis; N39.0 Urinary tract infection, site not specified; F05 Delirium due to known physiological condition; Z68.1 Body mass index [BMI] 19.9 or less, adult; N13.30 Unspecified hydronephrosis; I12.0 Hypertensive chronic kidney disease with stage 5 chronic kidney disease or end stage renal disease; E87.0 Hyperosmolality and hypernatremia; N18.9 Chronic kidney disease, unspecified; E86.0 Dehydration; E78.1 Pure hyperglyceridemia; F32.9 Major depressive disorder, single episode, unspecified; K29.50 Unspecified chronic gastritis without bleeding; K57.30 Diverticulosis of large intestine without perforation or abscess without bleeding; K29.40 Chronic atrophic gastritis without bleeding; K21.9 Gastro-esophageal reflux disease without esophagitis; E11.22 Type 2 diabetes mellitus with diabetic chronic kidney disease; D64.9 Anemia, unspecified; Z20.828 Contact with and (suspected) exposure to other viral communicable diseases; I48.91 Unspecified atrial fibrillation; Z90.710 Acquired absence of both cervix and uterus; Z95.0 Presence of cardiac pacemaker; Z93.1 Gastrostomy status; Z79.01 Long term (current) use of anticoagulants; Z90.49 Acquired absence of other specified parts of digestive tract; Z79.899 Other long term (current) drug therapy
CPT/HCPCS: 36415; 36573; 36600; 74176; 76770; 80048; 80053; 80061; 80076; 81003; 82375; 82550; 82553; 82607; 82728; 82746; 82805; 83036; 83540; 83550; 83735; 84100; 84443; 84484; 85025; 85044; 87426; 88305; 93005; 93970; 93971; 99285; C1725; C1892; C9113; J0696; J2250; J3010; J3490; J7030; J7060; J8597; Q0162